=== PATIENT | female | born 1935 | race Caucasian/White ===

== ENCOUNTER 2022-04-11 10:15 | Outpatient (CLI) | payer MEDICARE, OTHER ==
[~2022-04-11 10:15] MED LIST: ASPI-1071 PO; ATOR40TA72 PO; LEVO112T5 PO; OMEP20CA16 PO; UBID30CA11 PO
[2022-04-11] MEDS ORDERED: IODIXANOL 320 MG/ML INFUS..BTL 100ML IV ONE (10:49)
[2022-04-11 11:01] LABS: APTT 28 SECONDS (22-32); BASOPHILS # (AUTO) 0.1 X10'3 (0-0.2); BASOPHILS % (AUTO) 1.1 % (0-1); EOSINOPHILS # (AUTO) 0.2 X10'3 (0-0.9); HEMATOCRIT 44.2 % (35.0-45.0); HEMOGLOBIN 15.3 g/dl (12.0-16.0); LYMPHOCYTES # (AUTO) 1.9 X10'3 (1.1-4.8); LYMPHOCYTES % (AUTO) 22.9 % (21-51); MEAN CORPUSCULAR HEMOGLOBIN 32.2 PG (27.0-31.0); MEAN CORPUSCULAR HGB CONC 34.7 g/dL (33.0-36.5); MEAN CORPUSCULAR VOLUME 92.7 FL (78-98); MEAN PLATELET VOLUME 8.7 FL (7.4-10.4); MONOCYTES # (AUTO) 0.8 X10'3 (0-0.9); MONOCYTES % (AUTO) 9.7 % (2-12); NEUTROPHILS # (AUTO) 5.4 X10'3 (1.8-7.7); NEUTROPHILS % (AUTO) 64.3 % (42-75); PLATELET COUNT 241 X10'3 (140-440); RED BLOOD COUNT 4.77 X10'6 (4.20-5.60); RED CELL DISTRIBUTION WIDTH 13.7 % (11.5-14.5); WHITE BLOOD COUNT 8.4 X10'3 (4.5-11.0)
[2022-04-11 11:02] LABS: ALANINE AMINOTRANSFERASE 34 U/L (12-78); ALBUMIN 3.5 G/DL (3.4-5.0); ALBUMIN/GLOBULIN RATIO 0.9 (1.1-1.5); ALKALINE PHOSPHATASE 101 IU/L (46-116); ANION GAP 7 (8-16); ASPARTATE AMINO TRANSFERASE 29 U/L (10-37); BILIRUBIN,TOTAL 0.8 MG/DL (0.1-1.0); BLOOD UREA NITROGEN 22 MG/DL (7-18); BUN/CREATININE RATIO 36.7 (6.6-38.0); CHLORIDE 106 MMOL/L (99-107); GLUCOSE 83 MG/DL (70-104); POTASSIUM 4.2 MMOL/L (3.5-5.1); SODIUM 141 MMOL/L (135-145); TOTAL CARBON DIOXIDE 27.8 MMOL/L (24-32); TOTAL PROTEIN 7.2 G/DL (6.4-8.2); eGFR > 90 ML/MIN
== END 2022-04-11 23:59 | disposition home or self-care (01) ==
LOC: RAD 10:15
PROVIDERS: ATTEND Internal Medicine Cardiovascular Disease
DX: Z01.818 Encounter for other preprocedural examination (principal); I51.7 Cardiomegaly; I70.0 Atherosclerosis of aorta; I35.0 Nonrheumatic aortic (valve) stenosis; I65.29 Occlusion and stenosis of unspecified carotid artery; Z87.891 Personal history of nicotine dependence; Z79.899 Other long term (current) drug therapy
CPT/HCPCS: 36415; 71046; 71275; 74174; 80053; 85025; 85610; 85730; 94010; 94727; 94729; J3490; Q9967

== ENCOUNTER 2022-04-12 08:48 | Outpatient (CLI) | payer MEDICARE, OTHER ==
[~2022-04-12] VITALS: Ht 160 cm; Wt 73.2 kg
[2022-04-12 15:53] VITALS: BP 192/64
--- NOTE | 2022-04-12 15:54 | NUR ---
Patient and son Valentino were in the [facility] clinic today to consult with Dr. Nuno, Dr. Juan Cline and Dr. Cohen. [facility] completed. Vital signs measured. Patient education reviewed and questions answered.
[2022-05-02] MEDS ORDERED: vitamin b-12 (14:06)
== END 2022-04-12 23:59 | disposition home or self-care (01) ==
LOC: TAVR 08:48
PROVIDERS: ATTEND Internal Medicine Cardiovascular Disease
DX: Z13.6 Encounter for screening for cardiovascular disorders (principal)

== ENCOUNTER 2022-05-10 07:25 | Inpatient (IN) | payer MEDICARE, OTHER ==
--- NOTE | 2022-05-02 13:56 | NUR ---
wrong patient Addendum: 05/02/22 at 1357 by Monet Giordano RN Amended: Links added.
--- NOTE | 2022-05-02 13:57 | NUR ---
wrong pt Addendum: 05/02/22 at 1357 by Monet Giordano RN Amended: Links added.
[2022-05-02 14:21] LABS: BASOPHILS # (AUTO) 0.1 X10'3 (0-0.2); BASOPHILS % (AUTO) 1.4 % (0-1); EOSINOPHILS # (AUTO) 0.3 X10'3 (0-0.9); EOSINOPHILS % (AUTO) 3.7 % (0-6); LYMPHOCYTES # (AUTO) 1.7 X10'3 (1.1-4.8); LYMPHOCYTES % (AUTO) 23.2 % (21-51); MEAN CORPUSCULAR HEMOGLOBIN 32.3 PG (27.0-31.0); MEAN CORPUSCULAR HGB CONC 34.3 g/dL (33.0-36.5); MEAN CORPUSCULAR VOLUME 94.1 FL (78-98); MEAN PLATELET VOLUME 8.9 FL (7.4-10.4); MONOCYTES # (AUTO) 0.8 X10'3 (0-0.9); MONOCYTES % (AUTO) 11.2 % (2-12); NEUTROPHILS # (AUTO) 4.3 X10'3 (1.8-7.7); NEUTROPHILS % (AUTO) 60.5 % (42-75); PRE OP HEMATOCRIT 43.6 % (35.0-45.0); PRE OP HEMOGLOBIN 14.9 g/dL (12.0-16.0); PRE OP PLATELET COUNT 250 X10'3 (140-440); RED BLOOD COUNT 4.63 X10'6 (4.20-5.60); RED CELL DISTRIBUTION WIDTH 14.2 % (11.5-14.5)
[2022-05-02 14:23] LABS: CLARITY,URINE CLEAR (Clear); COLOR,URINE YELLOW (Yellow); GLUCOSE, URINE NEGATIVE (Neg); KETONES,URINE NEGATIVE (Neg); LEUKOCYTE ESTERASE ,URINE NEGATIVE (Neg); NITRITES, URINE NEGATIVE (Neg); OCCULT BLOOD,URINE NEGATIVE (Neg); PROTEIN,URINE NEGATIVE (Neg); UROBILINOGEN,URINE 0.2 E.U/dL (0.2-1.0)
[2022-05-02 14:43] LABS: PRE OP INR 1.1 INR; PRE OP PROTIME 10.9 SECONDS (9.0-12.0)
[2022-05-02 14:44] LABS: ALBUMIN 3.5 G/DL (3.4-5.0); ALKALINE PHOSPHATASE 88 IU/L (46-116); BLOOD UREA NITROGEN 16 MG/DL (7-18); BUN/CREATININE RATIO 23.9 (6.6-38.0); CALCIUM 8.7 MG/DL (8.5-10.1); CHLORIDE 103 MMOL/L (99-107); CREATININE 0.67 MG/DL (0.40-0.90); PRE OP ALT 38 U/L (30-65); PRE OP ANION GAP 8 (8-16); PRE OP AST 28 U/L (10-37); PRE OP GLUCOSE 94 MG/DL (70-104); PRE OP POTASSIUM 3.7 MMOL/L (3.4-5.1); PRE OP SODIUM 138 MMOL/L (135-145); TOTAL CARBON DIOXIDE 26.9 MMOL/L (24-32); TOTAL PROTEIN 7.1 G/DL (6.4-8.2); eGFR 83 ML/MIN
[2022-05-02 14:46] LABS: UA COLLECTION TYPE CLN CATCH MIDSTREAM
[~2022-05-10] VITALS: Ht 160 cm; Wt 72.6 kg
[2022-05-10] VITALS (18 sets, daily range): BP systolic 96–167; BP diastolic 50–72
[~2022-05-10 07:25] MED LIST changes: +CYAN500T9 PO; +aspirin 325mg tablet PO ONE; +ceFAZolin inj. 2,000 MG in dextrose 5%-water 100 ML IV ONE; +famotidine 20mg tablet PO ONE; +nitroPRUSSIDE (NIPRIDE) (200MCG/ML) 100ML Drip IV SCH; +ondansetron/PF 4mg/2ml inj IV PRN; +phenylephrine inj 50 MG in normal saline 250ml IV solN IV SCH; +protamine sulfate 10mg/ml inj. ONE; +ringers solution, lacted 1,000 ML IV SCH; +vancomycin 1,500 MG in NS 300ml IV soln IV ONE
[2022-05-10] MEDS ORDERED: iohexol 350MG/ML 100ml bottle IV ONE ×2 (10:24→10:25)
[2022-05-10] MEDS ORDERED: LIDOcaine 1% 30ml preserv. free vial ONE (10:24)
[2022-05-10] MEDS ORDERED: midazolam 1 mg/ML 2ml injection ONE (10:39)
[2022-05-10] MEDS ORDERED: FENTANYL CITRATE/PF 50 MCG/1 ML VIAL ONE ×3 (10:39→11:42)
[2022-05-10] MEDS ORDERED: heparin 1,000unit/ml 10ml vial 10 ML ONE ×2 (10:40→11:08)
[2022-05-10] MEDS ORDERED: propofol inj 20 ML IV ONE (11:08)
[2022-05-10] MEDS ORDERED: ondansetron/PF 4mg/2ml inj IV PRN (11:50)
[2022-05-10] MEDS ORDERED: magnesium 2GM in 50ml NS 50 ML IV PRN (11:50)
[2022-05-10] MEDS ORDERED: pantoprazole 40mg Tablet.DR PO PRN (11:50)
[2022-05-10] MEDS ORDERED: normal saline 1000ml 1,000 ML IV SCH (11:50)
[2022-05-10] MEDS ORDERED: labetalol 20mg/4ml (5mg/ml) syringe IV PRN (11:50)
[2022-05-10] MEDS ORDERED: proCHLORperazine 10 MG/2 ml inj IV PRN (11:50)
[2022-05-10] MEDS ORDERED: acetaminophen 325mg tablet PO PRN (11:50)
[2022-05-10] MEDS ORDERED: hydrALAZINE 20mg/ml inj. IV PRN (11:50)
[2022-05-10] MEDS ORDERED: potassium Cl 20mEq/100mL bag 100 ML IV PRN (11:50)
[2022-05-10] MEDS ORDERED: potassium Cl 40MEQ/270ML bag 250 ML IV PRN (11:50)
[2022-05-10] MEDS ORDERED: magnesium 4gm in 100ml NS 100 ML IV PRN (11:50)
[2022-05-10] MEDS ORDERED: potassium Cl 20 mEq SR tablet PO PRN (11:50)
[2022-05-10] MEDS ORDERED: potassium Cl 40MEQ/1/2NS 520ml 520 ML IV PRN (11:50)
[2022-05-10] MEDS ORDERED: diphenhydrAMINE 25mg capsule PO PRN (11:50)
[2022-05-10] MEDS ORDERED: ALPRAZolam 0.25mg tablet PO PRN (11:50)
[2022-05-10] MEDS ORDERED: docusate sod 100mg capsule PO PRN (11:50)
[2022-05-10] MEDS ORDERED: potassium CL 10mEq/100ml bag 100 ML IV PRN (11:50)
--- NOTE | 2022-05-10 11:50 | NUR ---
Received from OR via BED, accompanied by Anesthesiologist DR. DESAI and report given by Anesthesiologist AND OR NURSE. PT ARRIVED DROWSY BUT ABLE TO RESPOND TO VERBAL STIMULI ON 10 L OF 02 VIA MASK. VSS. PT HAS 20 G IV TO RIGHT WRIST AND ART LINE TO LEFT WRIST AND PRESSURE DEVICE INTACT. PT HAS DRESSING TO BILATERAL GROIN THAT IS C/D/I, NO SWELLING OR BLEEDING NOTED. LR AND NIPRIDE CURRENTLY RUNNING. NEURO ASSESSMENT COMPLETED. PUSH, PULL, DISBURSING AGENT, SMILE ALL WITHIN NORMAL LIMITS. BILATERAL PEDAL PULSES NOTED VIA DOPPLER. VSS. WILL CONTINUE TO MONITOR AND RECHECK GROIN SITES. Addendum: 05/10/22 at 1219 by Teja Noel RN Amended: Links added.
--- NOTE | 2022-05-10 12:30 | NUR ---
DISCONTINUE LEFT RADIAL ARTLINE. NO S/S OF HEMATOMA OR BLEEDING. APPLIED GAUZE AND COBAN DRESSING WHICH WAS C/D/I. PATIENT TOLERATED IT WELL. NO S/S OF DISTRESS OR DISCOMFORT. Addendum: 05/10/22 at 1301 by Teja Noel RN Amended: Links added.
--- NOTE | 2022-05-10 12:55 | NUR ---
PATIENT HAS MET ALL CRITERIA FOR TRANSFER TO PCU FLOOR. VSS. DRESSINGS INTACT. BED LOW, CALL LIGHT PRESENT AND 2 RAILS UP. RN PRESENT TO ACCEPT CARE OF PATIENT AND REPORT HAS BEEN CALLED. ALL QUESTIONS ANSWERED TO ACCEPTING RN. Addendum: 05/10/22 at 1300 by Teja Noel RN Amended: Links added.
[2022-05-10] MEDS ORDERED: normal saline 1000ml 1,000 ML IV ONE (14:25)
[2022-05-10] MEDS ORDERED: atropine 0.1mg/ml 10ml syringe IV ONE (14:25)
--- NOTE | 2022-05-10 15:01 | NUR ---
Blood sugar 69. Pt feeling shaky and cold. Juice and sandwich given. bs RECHECK 65. jUICE GIVEN. wILL RECHECK bs IN 15 MIN.
[2022-05-10] MEDS ORDERED: dextrose 50%-water 50ml dispensing syringe IV ONE (15:20)
--- NOTE | 2022-05-10 15:31 | NUR ---
BS RECHECK 55. 50% DEXTROSE GIVEN IV. PT COMPLAINS OF LOW BACK CRAMPING.
--- NOTE | 2022-05-10 16:10 | NUR ---
pt came at 1:20 from recovery room. on the arrival pt had stable vital sign. hr 128/60 hr 64 O2 97 T 97.3. at 2:00 pm pt HR started to fluctuate from 29 to 33. rapid respond was called. Atropin and normal saline given at 2:00 pm . After 15 minutes pt's vital sign was stable. HR 89 BP 96/51 T 97 R 19
[2022-05-10] MEDS: ceFAZolin 1GM/D5W- ADD-VANTAGE 50 ML IV SCH (16:52)
[2022-05-10] MEDS: sod chloride 0.9% 10ml flush syringe IV SCH (16:52)
--- NOTE | 2022-05-10 18:00 | NUR ---
Patient in room PCU 3023. I have received report from Sudarshan RN and had the opportunity to ask questions and assume patient care.
[2022-05-10] MEDS ORDERED: atorvastatin 20mg tablet PO SCH (21:00)
[2022-05-10] MEDS: vancomycin/NS 1 GM ADD-VANTAGE 250 ML IV SCH (21:05)
[2022-05-10] MEDS: pantoprazole 40mg Tablet.DR PO SCH (21:05)
[2022-05-11] VITALS: BP 139/41
[2022-05-11] MEDS: sod chloride 0.9% 10ml flush syringe IV SCH ×2 (00:52→08:00)
[2022-05-11] MEDS: ceFAZolin 1GM/D5W- ADD-VANTAGE 50 ML IV SCH ×2 (00:57→08:00)
[2022-05-11 01:00] VITALS: BP 138/54
[2022-05-11 02:00] VITALS: BP 124/98
[2022-05-11 03:00] VITALS: BP 134/42
[2022-05-11 04:00] VITALS: BP 118/41
[2022-05-11 05:00] VITALS: BP 128/44
--- NOTE | 2022-05-11 07:25 | NUR ---
Problems reprioritized. Patient report given, questions answered & plan of care reviewed with Elida HICKMAN. Addendum: 05/11/22 at 0730 by Beth Jane RN Problems reprioritized. Patient report given, questions answered & plan of care reviewed with Sudarshan HICKMAN.
[2022-05-11] MEDS: vancomycin/NS 1 GM ADD-VANTAGE 250 ML IV SCH (08:00)
[2022-05-11] MEDS: pantoprazole 40mg Tablet.DR PO SCH (08:00)
[2022-05-11] MEDS ORDERED: cyanocobalamin 500mcg tablet PO SCH (08:00)
[2022-05-11] MEDS ORDERED: levoTHYROXINE 112mcg tablet PO SCH (08:00)
[2022-05-11] MEDS ORDERED: non-formulary drug (Ubidecarenone (Coq-10) 30 MG) PO SCH (08:00)
[2022-05-11] MEDS ORDERED: aspirin 81mg, enteric-coated 1 TAB TABLET.DR PO SCH (08:00)
[2022-05-11 12:10] LABS: BASOPHILS # (AUTO) 0.1 X10'3 (0-0.2); BASOPHILS % (AUTO) 0.9 % (0-1); EOSINOPHILS # (AUTO) 0.2 X10'3 (0-0.9); EOSINOPHILS % (AUTO) 2.2 % (0-6); HEMATOCRIT 40.2 % (35.0-45.0); LYMPHOCYTES # (AUTO) 1.1 X10'3 (1.1-4.8); LYMPHOCYTES % (AUTO) 13.1 % (21-51); MEAN CORPUSCULAR HEMOGLOBIN 32.4 PG (27.0-31.0); MEAN CORPUSCULAR HGB CONC 34.7 g/dL (33.0-36.5); MEAN CORPUSCULAR VOLUME 93.4 FL (78-98); MEAN PLATELET VOLUME 8.2 FL (7.4-10.4); MONOCYTES % (AUTO) 12.5 % (2-12); NEUTROPHILS % (AUTO) 71.3 % (42-75); PLATELET COUNT 146 X10'3 (140-440); RED BLOOD COUNT 4.31 X10'6 (4.20-5.60); RED CELL DISTRIBUTION WIDTH 14.4 % (11.5-14.5); WHITE BLOOD COUNT 8.4 X10'3 (4.5-11.0)
[2022-05-11 12:30] LABS: ALANINE AMINOTRANSFERASE 28 U/L (12-78); ALBUMIN 3.1 G/DL (3.4-5.0); ALBUMIN/GLOBULIN RATIO 0.9 (1.1-1.5); ALKALINE PHOSPHATASE 75 IU/L (46-116); ANION GAP 7 (8-16); ASPARTATE AMINO TRANSFERASE 36 U/L (10-37); BILIRUBIN,TOTAL 1.2 MG/DL (0.1-1.0); BLOOD UREA NITROGEN 10 MG/DL (7-18); BUN/CREATININE RATIO 16.1 (6.6-38.0); CALCIUM 8.3 MG/DL (8.5-10.1); CHLORIDE 106 MMOL/L (99-107); CREATININE 0.62 MG/DL (0.40-0.90); GLUCOSE 95 MG/DL (70-104); POTASSIUM 3.7 MMOL/L (3.5-5.1); SODIUM 140 MMOL/L (135-145); TOTAL CARBON DIOXIDE 27.3 MMOL/L (24-32); TOTAL PROTEIN 6.4 G/DL (6.4-8.2); eGFR > 90 ML/MIN
== END 2022-05-11 14:43 | disposition home or self-care (01) | DRG 266 ==
LOC: PAS IN 07:25 → PCU 3S 12:54
PROVIDERS: ADMIT Internal Medicine Cardiovascular Disease; ATTEND Internal Medicine Cardiovascular Disease
PROC: B41D1ZZ Fluoroscopy of Aorta and Bilateral Lower Extremity Arteries using Low Osmolar Contrast (ICD-10-PCS; 2022-05-10)
PROC: 02RF38Z Replacement of Aortic Valve with Zooplastic Tissue, Percutaneous Approach (ICD-10-PCS; principal; 2022-05-10 10:44)
DX: I35.0 Nonrheumatic aortic (valve) stenosis (principal); Z00.6 Encounter for examination for normal comparison and control in clinical research program; I50.33 Acute on chronic diastolic (congestive) heart failure; E78.5 Hyperlipidemia, unspecified; E07.9 Disorder of thyroid, unspecified; I95.9 Hypotension, unspecified; R00.1 Bradycardia, unspecified; I45.4 Nonspecific intraventricular block; I83.90 Asymptomatic varicose veins of unspecified lower extremity
CPT/HCPCS: 33361; 36415; 71045; 76937; 80053; 81003; 82948; 83735; 83880; 84443; 85025; 85347; 85610; 85730; 86885; 86900; 86901; 86920; 87081; 93005; 93308; 94760; 94799; A4615; A4618; A6258; A6449; C1756; C1760; C1769; C1894; G0378; J0461; J0690; J1644; J2250; J2370; J2704; J2720; J3010; J3370; J3490; J7030; J7040; J7050; J7060; J7120; Q9967

== ENCOUNTER 2025-01-05 13:00 | Emergency (ER) | payer MEDICARE, OTHER ==
[~2025-01-05] VITALS: Ht 160 cm; Wt 85.0 kg
[~2025-01-05 13:00] MED LIST changes: -aspirin 325mg tablet PO ONE; -ceFAZolin inj. 2,000 MG in dextrose 5%-water 100 ML IV ONE; -famotidine 20mg tablet PO ONE; -nitroPRUSSIDE (NIPRIDE) (200MCG/ML) 100ML Drip IV SCH; -ondansetron/PF 4mg/2ml inj IV PRN; -phenylephrine inj 50 MG in normal saline 250ml IV solN IV SCH; -protamine sulfate 10mg/ml inj. ONE; -ringers solution, lacted 1,000 ML IV SCH; -vancomycin 1,500 MG in NS 300ml IV soln IV ONE
[2025-01-05 13:05] VITALS: TEMP 98.6
--- NOTE | 2025-01-05 13:15 | ELECTROCARDIOGRAPH REPORT ---
[facility] Test Date: 2025-01-05 Test Time: 13:13:30 Pat Name: MARISOL PETERS Department: EMERGENCY ROOM Room: Gender: F Needleworker: ZOE : 1935 Requested By: YVETTE VILLAVICENCIO Order Number: [id number] Reading MD: Measurements Intervals [place] Rate: 74 P: 29 FL: 221 QRS: 7 QRSD: 103 T: -6 QT: 443 QTc: 492 Interpretive Statements Atrial-paced complexes Ventricular bigeminy Prolonged FL interval Probable anterior infarct, age indeterminate Please click the below link to view image of tracing.
--- NOTE | 2025-01-05 13:54 | Physician Documentation ---
History of Present Illness ~ Chief Complaint: Mechanical Fall Stated Complaint: FALL Time Seen by MD: 13:26 Primary Medical Doctor: Dr. Connie Cline Mode of Arrival: EMS, Stretcher HPI This is a 89-year-old female who presents for evaluation of potential injuries sustained a mechanical ground level fall. She tripped over the carpet at the residents where she lives. She fell down forward. She struck her head on the carpet that is overlying a concrete floor. She did not not lose consciousness, there has been no vomiting, no nausea, however she takes blood thinners so she came in for further evaluation. She reports mild headache. Denies any particular palliating or aggravating factors. This was more of a slow fall where she had fallen on her knees 1st, followed by her hands, followed by her head striking the floor. She denies any chest pain, difficulty breathing, nausea, vomiting, diarrhea, abdominal pain. There was no concern for tobacco, alcohol or illicit substances use Tetanus within 5 Years?: No Medication Reconciliation Allergies: Coded Allergies: No Known Allergies (Unverified , 01/02/22) Scheduled Aspirin (Ecotrin*), 1 TAB PO DAILY, (Reported) Atorvastatin Calcium (Atorvastatin Calcium), 1 TAB PO QPM, (Reported) Cyanocobalamin (Vitamin B-12) (Vitamin B-12), 1 TAB PO DAILY, (Reported) Levothyroxine Sodium (Levothyroxine Sodium), 1 TAB PO DAILY, (Reported) Omeprazole (Omeprazole), 1 CAP PO BID, (Reported) Ubidecarenone (Coq-10), 30 MG PO DAILY, (Reported) Review of Systems ROS 10 point review of systems was performed and unless noted above in HPI is negative for acute process/complaint. Physical Exam Vital Signs: Temperature: 98.6, Source: Oral, Heart Rate: 71, Respiratory Rate: 15, BP: 165/69, Pulse Oximetry: 96, Weight: 85.000 Oxygen Flow Rate: 0 Physical Exam GENERAL: Awake, alert, oriented, GCS 15, no apparent distress, non-toxic appearing, answers questions, follows commands appropriately. Examined in room 2. HEENT: There is right periorbital ecchymosis without skin break normocephalic, pupils equal, extraocular muscles intact, sclerae anicteric, mucus membranes moist, oropharynx is clear, no stridor. NECK: supple, full active range of motion, trachea midline, no thyromegaly, no lymphadenopathy, no JVD. CARDIOVASCULAR: regular rate/rhythm, no murmurs/gallops/rubs, Pulses are 2+ in all extremities and symmetric. Capillary refill less than 2 seconds. PULMONARY: Nonlabored, good air movement ,no respiratory distress, speaking in full sentences, clear to auscultation bilaterally, no wheezing, no ronchi, no rales, no accessory muscle use. GASTROINTESTINAL: Soft, non-tender, non-distended, normal active bowel sounds, no organomegaly, no pulsatile masses, no CVA tenderness. NEUROLOGIC: Lucid with normal mental status. Normal facial symmetry. Moves all extremities symmetrically and with purpose. No truncal ataxia. Speech is fluid without evidence of dysarthria or aphasia, no focal deficits appreciated. MUSCULOSKELETAL: There is full range of motion of all extremities. There is no joint pain or joint swelling or joint erythema. There is no muscle pain or tenderness or swelling. EXTREMITIES: warm, well-perfused, no cyanosis, no clubbing, no edema, no acute deformities. Skin: warm, dry, no rashes or lesions, no jaundice, no petechiae orpurpura. No ecchymosis. PSYCHIATRIC: Normal affect, normal insight, normal concentration. Focused exam: [] Progress Results/Orders Results/Orders Orders - YVETTE VILLAVICENCIO DO Ct Head (01/05/25 13:58) Ct Cervical Spine (01/05/25 13:58) Completed Orders - YVETTE VILLAVICENCIO DO Electrocardiogram (01/05/25 13:12) Ct Head (01/05/25 13:58) Ct Cervical Spine (01/05/25 13:58) Vital Signs 01/05/25 01/05/25 01/05/25 13:05 13:05 13:13 Temp 98.6 Pulse 71 71 Resp 15 15 15 B/P (MAP) 165/69 165/69 (101) Pulse Ox 95 96 O2 Flow Rate 0 0 Medical Decision Making Findings Facility Status: ED Holds, [facility] process The plan was discussed with the patient, who demonstrates clear understanding of the plan and is in agreement with the plan unless otherwise noted in the chart. All questions have been answered, all concerns were addressed unless otherwise documented. I was available throughout their ED stay for frequent reassessment and questions. Differential Diagnoses (considered and possible or likely): [Ground level fall, acute traumatic pain, closed head injury, concussion, subdural, subarachnoid, cervical spine fracture or subluxation] ??Differential Diagnoses (considered and unlikely, not requiring evaluation currently): [No evidence of lateralizing signs to suspect a stroke] MDM Data Please see HPI for the following: Independent Historians and external Records Review. Historian: [Patient] Independent Historians: ?[Record review] Medication Management: [Reviewed medication list] Social History and determinants: [Reviewed] Please see the body of the note for the following: Any independent i nterpretations of ECG, imaging studies. All vitals signs/haemodynamics, ordered tests were independently reviewed and interpreted by myself. Nursing triage complaint and vitals reviewed, additional nursing notes were reviewed as available and I agree unless otherwise noted or documented in contradiction in the chart Vital Signs: Independently reviewed Labs: Independently interpreted Imaging: Independently interpreted Old Medical Records: Independently reviewed, see [facility] for relevant summary and information Pulse Oximetry: [99%] interpreted as [normal on room air] by me [Genetic Counselor: [Regular Rate, Regular rhythm, no ectopy, NSR] reviewed and interpreted by me] Additionally notably showing: [Hemodynamics reviewed. The patient isn't febrile, not tachycardic, noted as of hypotension or respiratory distress. Advanced imaging was obtained showing normal CT head without acute intracranial process. No fracture. CT C-spine was obtained as well showing no definitive fracture or dislocation.] Tests considered but not ordered include: [Hematologic workup has been considered but does not appear to be necessary given mechanical nature of the injury.] Social Determinants of Health Impact: Patient was evaluated in [facility], [facility] [place] access to healthcare due to below par ratio of patient to medical providers. [] Comorbid Conditions Impacting Present Evaluation and Care/Treatment: [Anticoagulated patient] Management Discussions with other Healthcare Providers: [] Treatment and Disposition Medication Management (Given or considered): []. See EMR for details Consideration for Hospitalization/Escalation/Deescalation of Care: Admission for observation has been considered, [however the patient is able to tolerate p.o., their symptoms are controlled, they are able to rely on oral medications, and their chief complaint/diagnosis can be managed on outpatient basis.] ?ED Course:?[No clinical deterioration] ?Shared decision making:?[Patient is hemodynamically stable for discharge home with follow with their primary care provider. [ ] Specific and cautious return precautions provided and discussed with full understanding. Any incidental findings were also discussed and follow up recommendations given. [] All questions answered. Patient/family were able to verbalize back return precautions. Patient/family agree to plan. Copies of imaging and laboratory studies were provided.] Code status:?FULL Please see the full Electronic Medical Record for full details of nursing doc umentation, medications list, other records of complete past medical history and conditions, vital signs, laboratory studies, and any radiologic study interpretations by radiologists. Portions of this note were completed using me[employer] dictation software and as a result there may exist minor errors in spelling. I have reviewed elements of past family and social history and agree as included in note. Departure Disposition: 01 HOME / SELF CARE / HOMELESS Impression: Primary Impression: Ground-level fall Additional Impressions: Acute traumatic pain Closed head injury Anticoagulated on Eliquis Discharge Instructions: Fall Prevention in the Home, Adult, [id number] Referrals: NO PRIMARY CARE PROVIDER (PCP) Education Educated: Patient Educated regarding: diagnosis, treatment, prognosis, need for follow up Signature Scribe Signature: No scribe Attestation: This note accurately reflects clinical decisions, work performed by myself, DO SAUD Castellon NICHOLAS M DO Jan 05, 2025 13:54
--- NOTE | 2025-01-05 14:14 | RADIOLOGY REPORT ---
EXAM: CT CT HEAD HISTORY: Mechanical fall, head strike, on thinners COMPARISON: None TECHNIQUE: Noncontrast axial CT images of the head were performed. Sagittal and coronal reformatted i mages were obtained. This CT exam was performed using 1 or more of the following dose reduction techn iques: Automated exposure control, adjustment of the mA and/or kv according to patient size, or the u se of iterative reconstruction techniques. Radiation Dose: CTDI volume is 61.72 mGy. Dose-length product is 1284.31 mGy*cm FINDINGS: There is mild global brain atrophy. There is mild decreased attenuation in the periventricular white matter. No intracranial hemorrhage, mass, midline shift, hydrocephalus, or evidence of acute large ve ssel infarct. The sella is likely partially empty. There are postoperative changes of bilateral catar act extraction surgery. There is mild mucosal thickening of the left maxillary sinus The bilateral ma stoid air cells and middle ear spaces are clear. No cranial fracture. There is right supraorbital fr ontal scalp edema. IMPRESSION: 1. Mild global brain atrophy and chronic ischemic changes without evidence of acute intracranial proc ess. 2. Mild left maxillary sinus disease. 3. Right frontal supraorbital scalp edema without underlying cranial fracture.
--- NOTE | 2025-01-05 14:24 | RADIOLOGY REPORT ---
EXAM: CT CT CERVICAL SPINE HISTORY: Mechanical fall, head strike, on thinners COMPARISON: None CTDIvol 23 mGy, DLP 597 mGy*cm. TECHNIQUE: Multiple axial CT images of the spine were obtained using bone algorithm. Axial and tran l reformatting was done. Bone and soft tissue windows were reviewed. FINDINGS: No CT evidence of definite acute fracture, spinal dislocation, or significant appearing acu te subluxation is seen. The visualized paraspinal soft tissues are grossly unremarkable. Severe multilevel degenerative disc disease. No vertebral body subluxation. MRI recommended if clini luisa symptoms persist IMPRESSION: 1. No definite CT evidence of acute fracture or dislocation of the bony cervical spine.
[2025-01-05 14:42] VITALS: BP 161/78; PULSE 75; RESP 15; O2SAT 98
== END 2025-01-05 15:01 | disposition home or self-care (01) ==
LOC: ER 13:00
DX: S09.8XXA Other specified injuries of head, initial encounter (principal); G89.11 Acute pain due to trauma; Z79.01 Long term (current) use of anticoagulants; Z79.82 Long term (current) use of aspirin; Z79.899 Other long term (current) drug therapy; W22.8XXA Striking against or struck by other objects, initial encounter; Y93.89 Activity, other specified; Y92.89 Other specified places as the place of occurrence of the external cause; Y99.8 Other external cause status
CPT/HCPCS: 70450; 72125; 93005; 99284